=== PATIENT | male | born 1980 | race Two or more races ===

== ENCOUNTER 2020-03-07 15:45 | Emergency (ER) | payer BC, OTHER ==
[~2020-03-07] VITALS: Ht 182.9 cm; Wt 172.4 kg
[2020-03-07 16:12] VITALS: BP 132/86
[2020-03-07] MEDS ORDERED: cefTRIAXone W LIDOCAINE 1 GM IM IM ONE (16:30)
[2020-03-07] MEDS ORDERED: AZITHROMYCIN 250 MG TAB PO ONE (16:30)
[2020-03-07] MEDS ORDERED: DexAMETHasone SOD PHOS 10MG/1ML VIAL INJ IM ONE (16:30)
== END 2020-03-07 18:42 | disposition home or self-care (01) ==
LOC: ER 15:45
DX: J18.9 Pneumonia, unspecified organism (principal); Z20.828 Contact with and (suspected) exposure to other viral communicable diseases
CPT/HCPCS: 36415; 71045; 87426; 96372; 99284; J0696; J1100

== ENCOUNTER 2020-07-26 17:11 | Emergency (ER) | payer BC ==
[~2020-07-26] VITALS: Ht 182.9 cm; Wt 165.6 kg
[2020-07-26 22:17] LABS: Basophils # (auto) 0.2 10 ^3/uL (0-0.2); Eosinophils # (auto) 0.2 10 ^3/uL (0-0.8); Mean Corpuscular Volume 78.4 fL (80.0-100.0); Neutrophils # (auto) 11.8 10 ^3/uL (1.6-8.6); Nucleated Red Blood Cells % 0.1 %
[2020-07-26 22:19] LABS: Lymphocytes # (auto) 3.7 10 ^3/uL (0.4-5.4); Lymphocytes % (auto) 21.7 % (10.0-50.0); Mean Corpuscular Hemoglobin 26.7 pg (28.0-32.0); Monocytes # (auto) 1.1 10 ^3/uL (0-1.3); Monocytes % (auto) 6.4 % (0.0-12.0); Neutrophils % (auto) 69.9 % (37.0-80.0); Platelet Count (auto) 250 10^3/uL (140-450); Red Blood Cells 5.23 10^6/uL (4.5-5.90); Red Cell Distribution Width 16.2 % (11.8-14.3); White Blood Cell 16.9 10^3/uL (4.4-10.8)
[2020-07-26 22:41] LABS: Albumin 3.2 g/dL (3.4-5.0); Anion Gap 7 (5-15); Blood Urea Nitrogen 17 mg/dL (7-18); Calcium 8.5 mg/dL (8.5-10.1); Carbon Dioxide 22 mmol/L (21-32); Chloride 105 mmol/L (98-107); Glucose 171 mg/dL (74-106); Potassium 4.1 mmol/L (3.5-5.1); Sodium 134 mmol/L (136-145)
[2020-07-26 22:46] LABS: Alanine Aminotransferase 38 U/L (16-61); Alkaline Phosphatase 108 U/L (45-117); Aspartate Aminotransferase 22 U/L (15-37); BUN/Creatinine Ratio 20.2; Bilirubin, Total 0.4 mg/dL (0.2-1.0); GFR African American 130 mL/min; GFR Non-African American 107 mL/min; Total Protein 8.5 g/dL (6.4-8.2)
[2020-07-27 05:25] VITALS: BP 139/83
== END 2020-07-27 06:24 | disposition home or self-care (01) ==
LOC: ER 17:11
DX: E86.0 Dehydration (principal); I95.1 Orthostatic hypotension; E11.9 Type 2 diabetes mellitus without complications
CPT/HCPCS: 36415; 70450; 71045; 80053; 84484; 85025; 93005